=== PATIENT | male | born 1955 | race Caucasian/White ===

== ENCOUNTER → 2019-06-03 | Outpatient (CLI) | payer OTHER ==
--- NOTE | 2019-06-03 16:15 | REP ---
REASON: Acute bronchitis. PRIORS: None. There is cardiomegaly. The lung brush are clear. The pleural angles are sharp. Old left sided rib fractures are present. IMPRESSION:Chronic changes as described above. There is no evidence of acute disease. Electronically Signed by Eddie Vicente DO 06/03/2019 05:05 P
== END ==
LOC: M WUC 14:52
PROVIDERS: ATTEND Nurse Practitioner Family
DX: J20.9 Acute bronchitis, unspecified (principal); I51.7 Cardiomegaly

== ENCOUNTER → 2019-06-03 | Outpatient (CLI) | payer OTHER | LOC: M WUC 18:54 | PROVIDERS: ATTEND Nurse Practitioner Family | DX: J20.9 Acute bronchitis, unspecified (principal) ==

== ENCOUNTER 2020-05-26 14:34 | Emergency (ER) | payer OTHER ==
[~2020-05-26] VITALS: Ht 177.8 cm; Wt 159.1 kg
[2020-05-26] MEDS ORDERED: TAMS1CAP17 (14:59)
[2020-05-26] MEDS ORDERED: INSU100V2 (14:59)
[2020-05-26] MEDS ORDERED: LOSA50TA88 (14:59)
[2020-05-26] MEDS ORDERED: FLUO1CRE2 (14:59)
[2020-05-26] MEDS ORDERED: HYDR25TAB (14:59)
[2020-05-26] MEDS ORDERED: PIOG1TAB37 (14:59)
[2020-05-26] MEDS ORDERED: ATOR80TA59 (14:59)
[2020-05-26] MEDS ORDERED: OXYB5TAB10 (14:59)
--- NOTE | 2020-05-26 15:56 | REPVR ---
PROCEDURE INFORMATION: Exam: US Duplex Left Lower Extremity Veins, Limited Exam date and time: 05/26/2020 3:48 PM Age: 65 years old Clinical indication: Pain; Leg, lower; Left; Additional info: Swelling TECHNIQUE: Imaging protocol: Real-time Duplex ultrasound of the Left Lower Extremity with 2-D condon scale, color Doppler flow and spectral waveform analysis with image documentation. Limited exam focused on the left lower extremity veins. COMPARISON: No relevant prior studies available. FINDINGS: Left deep veins: Unremarkable. The common femoral, femoral, proximal profunda femoral and popliteal veins are patent without thrombus. Normal Doppler waveforms. Normal compressibility and/or augmentation response. Left superficial veins: Unremarkable. Saphenofemoral junction is patent without thrombus. Soft tissues: Unremarkable. IMPRESSION: No evidence of deep vein thrombosis above the knee. The calf veins were not imaged on this exam. Electronically signed by: Yasir Blankenship On 05/26/2020 15:56:26 PM
[2020-05-26] MEDS ORDERED: [UNRECOGNIZED DRUG - CODE] EX (16:31)
[2020-05-26 16:54] VITALS: BP 131/86
== END 2020-05-26 17:03 | disposition home or self-care (01) ==
LOC: M ED 14:34
DX: M79.604 Pain in right leg (principal); B35.4 Tinea corporis; E11.9 Type 2 diabetes mellitus without complications; I10 Essential (primary) hypertension; Z79.4 Long term (current) use of insulin; Z79.82 Long term (current) use of aspirin; Z79.899 Other long term (current) drug therapy; Z88.0 Allergy status to penicillin